=== PATIENT | male | born 1985 | race Caucasian/White ===

== ENCOUNTER 2016-06-23 10:35 | Emergency (ER) | payer OTHER ==
[2016-06-23] MEDS ORDERED: IPRATROPIUM 0.5MG/ALBUTEROL 2.5MG INH SOL UD 3ML (DUONEB)(J7620) As Ordered ONE (11:23)
[2016-06-23] MEDS ORDERED: KETOROLAC 30 MG/ML VIAL (J1885) As Ordered ONE (11:41)
[2016-06-23 11:55] LABS: BASO # 0.2 K/mm3 (0.0-0.2); BASO % 1.4 % (0.0-1.0); EOS # 0.2 K/mm3 (0.0-0.50); EOS % 1.3 % (0.0-3.0); LARGE UNSTAINED CELL # 0.2 K/mm3 (0.0-0.4); LARGE UNSTAINED CELL % 1.1 % (0.0-4.0); LYMPH # 3.8 K/mm3 (1.5-4.5); LYMPH % 22.8 % (24.0-44.0); MEAN CORPUSCULAR HEMOGLOBIN 30.6 pg (27.0-33.0); MEAN CORPUSCULAR HGB CONC 33.9 g/dl (32.0-36.5); MEAN CORPUSCULAR VOLUME 90.2 fl (80.0-96.0); MONO # 0.8 K/mm3 (0.0-0.8); NEUTROPHILS # 10.7 K/mm3 (1.8-7.7); NEUTROPHILS % 68.4 % (36.0-66.0); PLATELET COUNT, AUTOMATED 243 k/mm3 (150-450); RED CELL DISTRIBUTION WIDTH 12.8 % (11.5-14.5); WHITE BLOOD COUNT 15.7 K/mm3 (4.0-10.0)
[2016-06-23 12:22] LABS: ALBUMIN 4.1 GM/DL (3.2-5.2); ALBUMIN/GLOBULIN RATIO 1.21 (1.00-1.93); ALKALINE PHOSPHATASE 97 U/L (45-117); ALT/SGPT 39 U/L (12-78); ANION GAP 7 MEQ/L (8-16); AST/SGOT 16 U/L (15-37); BILIRUBIN,DIRECT 0.1 MG/DL (0.0-0.2); BILIRUBIN,TOTAL 0.6 MG/DL (0.2-1.0); BLOOD UREA NITROGEN 16 MG/DL (7-18); CALCIUM LEVEL 8.7 MG/DL (8.5-10.1); CARBON DIOXIDE LEVEL 28 MEQ/L (21-32); CHLORIDE LEVEL 106 MEQ/L (98-107); CREATININE FOR GFR 1.01 MG/DL (0.70-1.30); GLOMERULAR FILTRATION RATE > 60.0 (>60); GLUCOSE, FASTING 84 MG/DL (70-105); POTASSIUM SERUM 3.7 MEQ/L (3.5-5.1); SODIUM LEVEL 141 MEQ/L (136-145); TOTAL PROTEIN 7.5 GM/DL (6.4-8.2)
[2016-06-23] MEDS ORDERED: ISOVUE-370 76% 100ML VIAL (Q9967) As Ordered ONE (12:57)
--- NOTE | 2016-06-23 16:06 | EDDOCDS ---
Nurse's Notes [facility] Name: Jamie Boyce Age: 30 yrs Sex: Male : 1985 Arrival Date: 06/23/2016 Time: 10:35 Bed I1 / M1 Private MD: NO PRIMARY PHYSICIAN, . Diagnosis: Acute upper respiratory infections of multiple and unspecified sites;Acute bronchitis;Abdominal and pelvic pain-RLQ Presentation: 06/23 10:38 Presenting complaint: Patient states: sick for the past couple of weeks and was hs1 diagnosed with bronchitis. Patient states he has been getting a sharp pain in bottom right of stomach and he thought it was because he was getting sick. Patient states let it go and then pain flared up again this morning. Pt concerned for appendicitis. Adult Sepsis Screening: The patient does not have new or worsening altered mentation. Patient's respiratory rate is less than 22. Systolic blood pressure is greater than 100. Patient has a qSOFA score of 0- Negative Sepsis Screen. Suicide/Homicide risk assessment- the patient denies having any suicidal and/or homicidal ideations and does not present with any other emotional, behavioral or mental health complaints. Status: Patient is not a director of casework services or dependent. Transition of care: patient was not received from another setting of care. 10:38 Acuity: LUIZ Level 3 hs1 10:38 Method Of Arrival: Walkin/Carried/Asstd hs1 Triage Assessment: 10:44 General: Appears in no apparent distress, Behavior is appropriate for age, cooperative. hs1 Pain: Location: abdomen Pain currently is 5 out of 10 on a pain scale. HIV screening NA for this visit Offered previously. GI: Reports nausea. Derm: Skin is pink, warm & dry. normal. Historical: - Allergies: SULFA (SULFONAMIDES); Ceclor; Penicillins; - Home Meds: 1. doxycycline hyclate 100 mg Oral tab 1 tab every 12 hours (Last dose: 06/23/2016 07:00) 2. prednisone 20 mg Oral tab 2 tabs once daily (Last dose: 06/22/2016 13:00) - PMHx: none; - PSHx: reconstruction of left big toe; - Social history: Smoking status: Patient uses tobacco products, heavy tobacco smoker. No barriers to communication noted, The patient speaks fluent Maori, Speaks appropriately for age. - Family history: Not pertinent. - : The pt / caregiver states he / she is not on anticoagulants. Home medication list is obtained from the patient. - Exposure Risk Screening:: None identified. Screenin:56 Screening information is obtained from the patient. Fall risk: No risks identified. ms18 Assistance ADL's: requires no assistance with activities of daily living. Abuse/DV Screen: The patient / caregiver reports he/she is: not in a situation that causes fear, pain or injury. Nutritional screening: No deficits noted. Advance Directives: There is no living will. home support is adequate. Assessment: 11:56 General: Appears in no apparent distress, comfortable, Behavior is appropriate for age, ms18 cooperative. Pain: Location: abdomen Pain currently is 5 out of 10 on a pain scale. Neurological: Level of Consciousness is awake, alert, obeys commands, Oriented to person, place, time, Speech is normal. Respiratory: Airway is patent Respiratory effort is even, unlabored, Reports cough that is. GI: Abdomen is non- distended Bowel sounds present X 4 quads. Abd is soft X 4 quads. Derm: Skin is pink, warm & dry. 12:59 General: Pt going to CT at this time. Will continue to monitor pt. Pt in no acute ms18 distress. Pt can ambulate with no assistance. 13:54 General: PT in no acute distress. VSS. Awaiting CT results at this time. Will continue jjr to monitor pt. 14:43 General: Appears in no apparent distress, comfortable, Behavior is appropriate for age, jjr cooperative, pleasant. General: Awaiting CT results at this time. Pt informed of this. Will continue to monitor pt. Neurological: No deficits noted. Respiratory: No deficits noted. Derm: Skin is pink, warm & dry. 14:59 Reassessment: Patient appears in no apparent distress at this time. Patient states ttb feeling better. General: pt updated on waiting for CT results still. . 15:48 General: Appears in no apparent distress, comfortable, Behavior is appropriate for age, ms18 cooperative, Continuing to await CT results at this time. Dr. Tripathi aware of this, CT has called MIS and MIS states that this a nationwide issue at the moment. Dr. Tripathi is unable to see the scans at this time as well. Will continue to monitor pt. PT in no acute distress. . Neurological: No deficits noted. Respiratory: No deficits noted. Derm: Skin is pink, warm & dry. 16:03 Reassessment: Patient appears in no apparent distress at this time. Patient denies pain ttb at this time. Patient states feeling better. Patient states symptoms have improved. pt states he is comfortable going home at this time.. General: Appears in no apparent distress, comfortable. Pain: Denies pain. Neurological: Level of Consciousness is awake, alert. Cardiovascular: Chest pain is denied. Respiratory: Airway is patent Respiratory effort is even, unlabored, Denies labored breathing. GI: Denies nausea, vomiting. Vital Signs: 10:36 BP 146 / 93; Pulse 94; Resp 16; Temp 97.4(O); Pulse Ox 96% on R/A; Weight 104.33 kg elp (R); Height 6 ft. 0 in. (182.88 cm) (R); Pain 5/10; 13:48 BP 137 / 91 LA Sitting (auto/lg); Pulse 80; Resp 22; Temp 97.5(O); Pulse Ox 96% on R/A; bnb Pain 3/10; 14:45 Resp 18; jjr 15:57 BP 135 / 74 LA Sitting (auto/lg); Pulse 70; Resp 20; Temp 97.5; Pulse Ox 96% on R/A; bnb Pain 0/10; 10:36 Body Mass Index 31.19 (104.33 kg, 182.88 cm) elp Vitals: 10:36 Log In Time: June 23, 2016 at 10:34. [facility] ED Course: 10:36 Patient visited by Kaitlin Dean PCA. elp 10:36 NO PRIMARY PHYSICIAN, . is Private Physician. elp 10:36 Patient moved to Waiting elp 10:37 Patient visited by Kaitlin Dean PCA. elp 10:37 Patient moved to Pre RCE elp 10:40 Triage Initiated hs1 10:45 Patient moved to Triage 1 hs1 10:47 [facility]arn[facility] Kaminski [facility] cc10 10:47 Renuka Simmons MD is Attending Physician. cc10 11:10 Patient visited by Earnest Kaminski PA-C. cc10 11:10 Patient visited by Earnest Kaminski PA-C. cc10 11:21 Patient moved to I1 / M1 ct3 11:24 Urinalysis Sent. jjr 11:55 Patient visited by Jacey Stanley RN. ms18 11:56 The patient / caregiver is instructed regarding the plan of care and ED course. ms18 Accompanied by Family Member, Patient has correct armband on for positive identification. Bed in low position. Call light in reach. Property sent home with patient. :Personal belongings accompany Pt. 11:56 Inserted saline lock: 18 gauge in right antecubital area and blood collected. The ms18 patient tolerated the procedure well. 12:23 Patient name changed from Jamie\S\\S\Joles\S\ to Jamie\S\D\S\Joles. EDMS 12:26 [facility] Payment Agreement was scanned into [employer] and attached to record. lg 13:01 Patient visited by Roscoe Dominguez. jml1 13:44 Patient visited by Jacey Stanley RN. ms18 13:49 Patient visited by Padma Rothman PCA. bnb 14:43 Patient visited by Iram Fagan, VERNA. jjr 14:59 Patient visited by Gabrielle John RN. ttb 15:00 Patient visited by Gabrielle John RN. ttb 15:48 Patient visited by Jacey Stanley RN. ms18 15:54 [facility] is Referral Physician. cc10 15:57 Patient visited by Padma Rothman PCA. bnb 16:03 Discontinued IV lock intact, bleeding controlled, pressure dressing applied, No ttb redness/swelling at site. No procedures done that require assistance. 16:03 Urine collected. Clean catch specimen. ttb Administered Medications: 11:27 Drug: Albuterol-Ipratropium 3 ml [ipratropium-albuterol 0.5 mg-3 mg(2.5 mg base)/3 mL [facility] nebulization soln (3 mL)] Route: Inhalation; 11:35 Follow up: Response: Nebulizer completed km6 11:55 Drug: ketorolac 30 mg [ketorolac 30 mg/mL (1 mL) injection solution (1 mL)] Route: IVP; ms18 Site: left antecubital; 16:04 Follow up: Response: No Adverse Reaction ttb RT: 11:28 Initial Med Neb Given as ordered Patient was instructed and evaluated on procedure km6 Patient tolerated procedure well without adverse effect. Respiratory: Breath sounds are clear Breath sounds are diminished bilaterally. Order Results: Lab Order: Basic Metabolic Profile; SPEC'M 06/23/16 11:44 Test: GLUCOSE, FASTING; Value: 84; Range: 70-105; Units: MG/DL; Status: F Test: BLOOD UREA NITROGEN; Value: 16; Range: 7-18; Units: MG/DL; Status: F Test: CREATININE FOR GFR; Value: 1.01; Range: 0.70-1.30; Units: MG/DL; Status: F Test: GLOMERULAR FILTRATION RATE; Value: > 60.0; Range: >60; Status: F Test: SODIUM LEVEL; Value: 141; Range: 136-145; Units: MEQ/L; Status: F Test: POTASSIUM SERUM; Value: 3.7; Range: 3.5-5.1; Units: MEQ/L; Status: F Test: CHLORIDE LEVEL; Value: 106; Range: 98-107; Units: MEQ/L; Status: F Test: CARBON DIOXIDE LEVEL; Value: 28; Range: 21-32; Units: MEQ/L; Status: F Test: ANION GAP; Value: 7; Range: 8-16; Abnormal: Below low normal; Units: MEQ/L; Status: F Test: CALCIUM LEVEL; Value: 8.7; Range: 8.5-10.1; Units: MG/DL; Status: F Test Note: ; Units are mL/min/1.73 m2 Chronic Kidney Disease Staging per NKF: Stage I & II GFR >=60 Normal to Mildly Decreased Stage III GFR 30-59 Moderately Decreased Stage IV GFR 15-29 Severely Decreased Stage V GFR <15 Very Little GFR Left ESRD GFR <15 on AGRONOMY INTERNSHIP Lab Order: CBC with Diff; SPEC'M 06/23/16 11:44 Test: WHITE BLOOD COUNT; Value: 15.7; Range: 4.0-10.0; Abnormal: Above high normal; Units: K/mm3; Status: F Test: RED BLOOD COUNT; Value: 5.55; Range: 4.30-6.10; Units: M/mm3; Status: F Test: HEMOGLOBIN; Value: 17.0; Range: 14.0-18.0; Units: g/dl; Status: F Test: HEMATOCRIT; Value: 50.1; Range: 42.0-52.0; Units: %; Status: F Test: MEAN CORPUSCULAR VOLUME; Value: 90.2; Range: 80.0-96.0; Units: fl; Status: F Test: MEAN CORPUSCULAR HEMOGLOBIN; Value: 30.6; Range: 27.0-33.0; Units: pg; Status: F Test: MEAN CORPUSCULAR HGB CONC; Value: 33.9; Range: 32.0-36.5; Units: g/dl; Status: F Test: RED CELL DISTRIBUTION WIDTH; Value: 12.8; Range: 11.5-14.5; Units: %; Status: F Test: PLATELET COUNT, AUTOMATED; Value: 243; Range: 150-450; Units: k/mm3; Status: F Test: NEUTROPHILS %; Value: 68.4; Range: 36.0-66.0; Abnormal: Above high normal; Units: %; Status: F Test: LYMPH %; Value: 22.8; Range: 24.0-44.0; Abnormal: Below low normal; Units: %; Status: F Test: MONO %; Value: 5.0; Range: 0.0-5.0; Units: %; Status: F Test: EOS %; Value: 1.3; Range: 0.0-3.0; Units: %; Status: F Test: BASO %; Value: 1.4; Range: 0.0-1.0; Abnormal: Above high normal; Units: %; Status: F Test: LARGE UNSTAINED CELL %; Value: 1.1; Range: 0.0-4.0; Units: %; Status: F Test: NEUTROPHILS #; Value: 10.7; Range: 1.8-7.7; Abnormal: Above high normal; Units: K/mm3; Status: F Test: LYMPH #; Value: 3.8; Range: 1.5-4.5; Units: K/mm3; Status: F Test: MONO #; Value: 0.8; Range: 0.0-0.8; Units: K/mm3; Status: F Test: EOS #; Value: 0.2; Range: 0.0-0.50; Units: K/mm3; Status: F Test: BASO #; Value: 0.2; Range: 0.0-0.2; Units: K/mm3; Status: F Test: LARGE UNSTAINED CELL #; Value: 0.2; Range: 0.0-0.4; Units: K/mm3; Status: F Lab Order: Lipase; [facility] 06/23/16 11:44 Test: LIPASE; Value: 120; Range: 73-393; Units: U/L; Status: F Lab Order: Liver Profile; [facility] 06/23/16 11:44 Test: AST/SGOT; Value: 16; Range: 15-37; Units: U/L; Status: F Test: ALT/SGPT; Value: 39; Range: 12-78; Units: U/L; Status: F Test: ALKALINE PHOSPHATASE; Value: 97; Range: 45-117; Units: U/L; Status: F Test: BILIRUBIN,TOTAL; Value: 0.6; Range: 0.2-1.0; Units: MG/DL; Status: F Test: BILIRUBIN,DIRECT; Value: 0.1; Range: 0.0-0.2; Units: MG/DL; Status: F Test: TOTAL PROTEIN; Value: 7.5; Range: 6.4-8.2; Units: GM/DL; Status: F Test: ALBUMIN; Value: 4.1; Range: 3.2-5.2; Units: GM/DL; Status: F Test: ALBUMIN/GLOBULIN RATIO; Value: 1.21; Range: 1.00-1.93; Status: F Lab Order: Urinalysis; [facility] 06/23/16 11:21 Test: APPEARANCE, URINE; Value: CLEAR; Range: CLEAR; Status: F Test: COLOR, URINE; Value: YELLOW; Range: YELLOW; Status: F Test: PH,URINE; Value: 5.0; Range: 5.0-9.0; Units: UNITS; Status: F Test: SPECIFIC GRAVITY URINE AUTO; Value: 1.026; Range: 1.002-1.035; Status: F Test: PROTEIN, URINE AUTO; Value: NEGATIVE; Range: NEGATIVE; Units: mg/dL; Status: F Test: GLUCOSE, URINE (UA) AUTO; Value: NEGATIVE; Range: NEGATIVE; Units: mg/dL; Status: F Test: KETONE, URINE AUTO; Value: NEGATIVE; Range: NEGATIVE; Units: mg/dL; Status: F Test: UROBILINOGEN, URINE AUTO; Value: 0.2; Range: 0.0-2.0; Units: mg/dL; Status: F Test: BILIRUBIN, URINE AUTO; Value: NEGATIVE; Range: NEGATIVE; Status: F Test: NITRITE, URINE AUTO; Value: NEGATIVE; Range: NEGATIVE; Status: F Test: LEUKOCYTE ESTERASE, URINE AUTO; Value: NEGATIVE; Range: NEGATIVE; Status: F Test: BLOOD, URINE BLOOD; Value: NEGATIVE; Range: NEGATIVE; Status: F Test: WBC, URINE AUTO; Value: 0; Range: 0-3; Units: /HPF; Status: F Test: RBC, URINE AUTO; Value: 0; Range: 0-3; Units: /HPF; Status: F Test: BACTERIA, URINE AUTO; Value: NEGATIVE; Range: NEGATIVE; Status: F Test: SQUAMOUS EPITHELIAL CELL UR AU; Value: 0; Range: 0-6; Units: /HPF; Status: F Test: MUCUS, URINE; Value: SMALL; Range: NEGATIVE; Status: F Test: HYALINE CAST, URINE AUTO; Value: 0; Range: 0-1; Units: /LPF; Status: F Outcome: 15:54 Discharge ordered by Provider. cc10 16:03 Discharge Assessment: Patient awake, alert and oriented x 3. No cognitive and/or ttb functional deficits noted. Patient verbalized understanding of disposition instructions. Patient awake and alert. patient administered narcotics - no. The following High Risk Discharge criteria are identified: None. Discharged to home ambulatory. Condition: good Condition: stable Condition: improved. Discharge instructions given to patient, Instructed on discharge instructions, follow up and referral plans. medication usage, Demonstrated understanding of instructions, medications, Pt was receptive of discharge instructions/ teaching. Prescriptions given X 1, 2. CT Study completed. 16:05 Patient left the ED. ttb Signatures: Dispatcher [employer] EDMS Lelo Al, Cynthia Rashid lg km6 Iram Fagan RN RN jjr Sherrill, Hannah, RN RN hs1 Mylene Crowe, DURABLE MEDICAL EQUIPMENT REPAIRER DURABLE MEDICAL EQUIPMENT REPAIRER ct3 Roscoe Dominguez jml1 Gabrielle John RN RN ttb Kaitlin Dean, DURABLE MEDICAL EQUIPMENT REPAIRER DURABLE MEDICAL EQUIPMENT REPAIRER elp Eanrest Kaminski, PA-C PA-C cc10 Jacey Stanley,RN RN ms18 Padma Rothman, DURABLE MEDICAL EQUIPMENT REPAIRER DURABLE MEDICAL EQUIPMENT REPAIRER bnb MTDD
--- NOTE | 2016-06-23 16:06 | EDDOCDS ---
Physician Documentation [facility] Name: Jamie Boyce Age: 30 yrs Sex: Male : 1985 Arrival Date: 06/23/2016 Time: 10:35 Bed I1 / M1 Private MD: NO PRIMARY PHYSICIAN, . Disposition: 06/23/16 15:54 Discharged to Home/Self Care. Impression: Acute upper respiratory infections of multiple and unspecified sites, Acute bronchitis, Abdominal and pelvic pain - RLQ. - Condition is Stable. - Discharge Instructions: Acute Bronchitis, Upper Respiratory Infection, Adult, Muscle Strain. - Prescriptions for Ultram 50 mg Oral Tablet - take 1 tablet by ORAL route every 6 hours As needed MDD: 4 tabs; 16 tablet. Guaifenesin- DM 10-100 mg/5 mL Oral Liquid - take 5 milliliter by ORAL route every 4 hours As needed; 100 milliliter. - Medication Reconciliation, Local Pharmacy Hours, Work Release Form - 2 day form. - Follow up: Emergency Department; When: As needed. [facility]: [facility]; When: Call to arrange an appointment; Reason: Recheck today's complaints, Continuance of care, To establish care. - Problem is an ongoing problem. - Symptoms have improved. Historical: - Allergies: SULFA (SULFONAMIDES); Ceclor; Penicillins; - Home Meds: 1. doxycycline hyclate 100 mg Oral tab 1 tab every 12 hours (Last dose: 06/23/2016 07:00) 2. prednisone 20 mg Oral tab 2 tabs once daily (Last dose: 06/22/2016 13:00) - PMHx: none; - PSHx: reconstruction of left big toe; - Social history: Smoking status: Patient uses tobacco products, heavy tobacco smoker. No barriers to communication noted, The patient speaks fluent Sami, Speaks appropriately for age. - Family history: Not pertinent. - : The pt / caregiver states he / she is not on anticoagulants. Home medication list is obtained from the patient. - Exposure Risk Screening:: None identified. Vital Signs: 06/23 10:36 BP 146 / 93; Pulse 94; Resp 16; Temp 97.4(O); Pulse Ox 96% on R/A; Weight 104.33 kg / elp 230.01 lbs (R); Height 6 ft. 0 in. (182.88 cm) (R); Pain 5/10; 13:48 BP 137 / 91 LA Sitting (auto/lg); Pulse 80; Resp 22; Temp 97.5(O); Pulse Ox 96% on R/A; bnb Pain 3/10; 14:45 Resp 18; jjr 15:57 BP 135 / 74 LA Sitting (auto/lg); Pulse 70; Resp 20; Temp 97.5; Pulse Ox 96% on R/A; bnb Pain 0/10; 10:36 Body Mass Index 31.19 (104.33 kg, 182.88 cm) elp MDM: 11:17 ketorolac 30 mg IVP once ordered. cc10 11:17 IV Saline Lock ordered. cc10 11:17 Undress patient appropriately for examination ordered. cc10 11:17 Albuterol-Ipratropium 3 ml Inhalation once ordered. cc10 11:17 Call Respiratory ordered. cc10 11:18 Basic Metabolic Profile Ordered. EDMS 11:18 CBC with Diff Ordered. EDMS 11:18 Lipase Ordered. EDMS 11:18 Liver Profile Ordered. EDMS 11:18 Urinalysis Ordered. EDMS 11:18 NOTHING BY MOUTH+DIET ordered. EDMS 11:19 Chest, 2 View (pa\E\lat) Ordered. EDMS 11:23 Call Respiratory complete. bnb 12:03 Financial registration complete. lg 12:26 [facility] [place] Agreement was scanned into [employer] and attached to record. lg 12:29 Basic Metabolic Profile Reviewed. cc10 12:29 CBC with Diff Reviewed. cc10 12:29 Lipase Reviewed. cc10 12:29 Liver Profile Reviewed. cc10 12:29 Urinalysis Reviewed. cc10 12:32 CT ABD & PELVIS: IV Contrast Only Ordered. EDMS Administered Medications: 11:27 Drug: Albuterol-Ipratropium 3 ml [ipratropium-albuterol 0.5 mg-3 mg(2.5 mg base)/3 mL [facility] nebulization soln (3 mL)] Route: Inhalation; 11:35 Follow up: Response: Nebulizer completed km6 11:55 Drug: ketorolac 30 mg [ketorolac 30 mg/mL (1 mL) injection solution (1 mL)] Route: IVP; ms18 Site: left antecubital; 16:04 Follow up: Response: No Adverse Reaction ttb Signatures: Dispatcher [employer] EDLelo Ann, Reg Reg lg Linda Wyatt RN RN hs1 Gabrielle John RN RN ttb Earnest Kaminski, PAChristiana PAChristiana cc10 Jacey Stanley RN RN ms18 Padma Rothman, AUDITING SPECIALIST AUDITING SPECIALIST bnb Cynthia Hawkins km6 The chart was reviewed and I authenticate all verbal orders and agree with the evaluation and treatment provided.Attachments: 12:26 [facility] Payment Agreement lg MTDD
--- NOTE | 2016-06-25 08:31 | REP ---
PA and lateral chest: Comparisons 09/12/2010. The lung jones are clear. The cardiac size is normal The rosa, mediastinum, and bony thorax are unremarkable. Impression: Negative PA and lateral chest. There is no interval change. Signed by Ethan Tripathi MD 06/23/2016 11:35 A
--- NOTE | 2016-06-25 11:02 | REP ---
CT abdomen and pelvis with IV contrast, without bowel contrast: There are no comparison studies. The appendix has a normal appearance. The visualized lung jones are unremarkable. The pancreas, gallbladder, hepatic parenchyma and spleen are unremarkable. The adrenals, kidneys and abdominal aorta are unremarkable. There is no hydronephrosis. There is no bowel distension or obstruction. The mesentery is unremarkable. Pelvis: There is no ascites or adenopathy. The bladder is incompletely distended and cannot be evaluated. The pelvic bowel loops are unremarkable. Impression: Negative CT study of the abdomen and pelvis. There is no CT evidence of appendicitis. Signed by Ethan Tripathi MD 06/23/2016 01:46 P
--- NOTE | 2016-06-25 17:06 | EDDOCDS ---
Physician Documentation [facility] Name: Jamie Boyce Age: 30 yrs Sex: Male : 1985 Arrival Date: 06/23/2016 Time: 10:35 Bed I1 / M1 Private MD: NO PRIMARY PHYSICIAN, . Disposition: 06/23/16 15:54 Discharged to Home/Self Care. Impression: Acute upper respiratory infections of multiple and unspecified sites, Acute bronchitis, Abdominal and pelvic pain - RLQ. - Condition is Stable. - Discharge Instructions: Acute Bronchitis, Upper Respiratory Infection, Adult, Muscle Strain. - Prescriptions for Ultram 50 mg Oral Tablet - take 1 tablet by ORAL route every 6 hours As needed MDD: 4 tabs; 16 tablet. Guaifenesin- DM 10-100 mg/5 mL Oral Liquid - take 5 milliliter by ORAL route every 4 hours As needed; 100 milliliter. - Medication Reconciliation, Local Pharmacy Hours, Work Release Form - 2 day form. - Follow up: Emergency Department; When: As needed. [facility]: [facility]; When: Call to arrange an appointment; Reason: Recheck today's complaints, Continuance of care, To establish care. - Problem is an ongoing problem. - Symptoms have improved. Historical: - Allergies: SULFA (SULFONAMIDES); Ceclor; Penicillins; - Home Meds: 1. doxycycline hyclate 100 mg Oral tab 1 tab every 12 hours (Last dose: 06/23/2016 07:00) 2. prednisone 20 mg Oral tab 2 tabs once daily (Last dose: 06/22/2016 13:00) - PMHx: none; - PSHx: reconstruction of left big toe; - Social history: Smoking status: Patient uses tobacco products, heavy tobacco smoker. No barriers to communication noted, The patient speaks fluent Serbian, Speaks appropriately for age. - Family history: Not pertinent. - : The pt / caregiver states he / she is not on anticoagulants. Home medication list is obtained from the patient. - Exposure Risk Screening:: None identified. Vital Signs: 06/23 10:36 BP 146 / 93; Pulse 94; Resp 16; Temp 97.4(O); Pulse Ox 96% on R/A; Weight 104.33 kg / elp 230.01 lbs (R); Height 6 ft. 0 in. (182.88 cm) (R); Pain 5/10; 13:48 BP 137 / 91 LA Sitting (auto/lg); Pulse 80; Resp 22; Temp 97.5(O); Pulse Ox 96% on R/A; bnb Pain 3/10; 14:45 Resp 18; jjr 15:57 BP 135 / 74 LA Sitting (auto/lg); Pulse 70; Resp 20; Temp 97.5; Pulse Ox 96% on R/A; bnb Pain 0/10; 10:36 Body Mass Index 31.19 (104.33 kg, 182.88 cm) elp MDM: 11:17 ketorolac 30 mg IVP once ordered. cc10 11:17 IV Saline Lock ordered. cc10 11:17 Undress patient appropriately for examination ordered. cc10 11:17 Albuterol-Ipratropium 3 ml Inhalation once ordered. cc10 11:17 Call Respiratory ordered. cc10 11:18 Basic Metabolic Profile Ordered. EDMS 11:18 CBC with Diff Ordered. EDMS 11:18 Lipase Ordered. EDMS 11:18 Liver Profile Ordered. EDMS 11:18 Urinalysis Ordered. EDMS 11:18 NOTHING BY MOUTH+DIET ordered. EDMS 11:19 Chest, 2 View (pa\E\lat) Ordered. EDMS 11:23 Call Respiratory complete. bnb 12:03 Financial registration complete. lg 12:26 [facility] Payment Agreement was scanned into [employer] and attached to record. lg 12:29 Basic Metabolic Profile Reviewed. cc10 12:29 CBC with Diff Reviewed. cc10 12:29 Lipase Reviewed. cc10 12:29 Liver Profile Reviewed. cc10 12:29 Urinalysis Reviewed. cc10 12:32 CT ABD & PELVIS: IV Contrast Only Ordered. EDMS 17:12 T-Sheet-- Draft Copy was scanned into [employer] and attached to record. klr Administered Medications: 11:27 Drug: Albuterol-Ipratropium 3 ml [ipratropium-albuterol 0.5 mg-3 mg(2.5 mg base)/3 mL [facility] nebulization soln (3 mL)] Route: Inhalation; 11:35 Follow up: Response: Nebulizer completed [facility] 11:55 Drug: ketorolac 30 mg [ketorolac 30 mg/mL (1 mL) injection solution (1 mL)] Route: IVP; ms18 Site: left antecubital; 16:04 Follow up: Response: No Adverse Reaction ttb Signatures: Dispatcher [employer] Lelo Parrish, Reg Reg lg Linda Wyatt RN RN hs1 Gabrielle John RN RN ttb Earnest Kaminski, PAKyleC PAChristiana clements10 Jacey Stanley RN RN ms18 Jaycee Steve Brittney, STORE MANAGER STORE MANAGER bnb Cynthia Hawkins 6 The chart was reviewed and I authenticate all verbal orders and agree with the evaluation and treatment provided.Attachments: 12:26 [facility] Payment Agreement lg 17:12 T-Sheet-- Draft Copy klr Chart Complete MTDD
--- NOTE | 2016-06-25 17:06 | EDDOCDS ---
Physician Documentation [facility] Name: Jamie Boyce Age: 30 yrs Sex: Male : 1985 Arrival Date: 06/23/2016 Time: 10:35 Bed I1 / M1 Private MD: NO PRIMARY PHYSICIAN, . Disposition: 06/23/16 15:54 Discharged to Home/Self Care. Impression: Acute upper respiratory infections of multiple and unspecified sites, Acute bronchitis, Abdominal and pelvic pain - RLQ. - Condition is Stable. - Discharge Instructions: Acute Bronchitis, Upper Respiratory Infection, Adult, Muscle Strain. - Prescriptions for Ultram 50 mg Oral Tablet - take 1 tablet by ORAL route every 6 hours As needed MDD: 4 tabs; 16 tablet. Guaifenesin- DM 10-100 mg/5 mL Oral Liquid - take 5 milliliter by ORAL route every 4 hours As needed; 100 milliliter. - Medication Reconciliation, Local Pharmacy Hours, Work Release Form - 2 day form. - Follow up: Emergency Department; When: As needed. [facility] up: [facility]; When: Call to arrange an appointment; Reason: Recheck today's complaints, Continuance of care, To establish care. - Problem is an ongoing problem. - Symptoms have improved. Historical: - Allergies: SULFA (SULFONAMIDES); Ceclor; Penicillins; - Home Meds: 1. doxycycline hyclate 100 mg Oral tab 1 tab every 12 hours (Last dose: 06/23/2016 07:00) 2. prednisone 20 mg Oral tab 2 tabs once daily (Last dose: 06/22/2016 13:00) - PMHx: none; - PSHx: reconstruction of left big toe; - Social history: Smoking status: Patient uses tobacco products, heavy tobacco smoker. No barriers to communication noted, The patient speaks fluent Italian, Speaks appropriately for age. - Family history: Not pertinent. - : The pt / caregiver states he / she is not on anticoagulants. Home medication list is obtained from the patient. - Exposure Risk Screening:: None identified. Vital Signs: 06/23 10:36 BP 146 / 93; Pulse 94; Resp 16; Temp 97.4(O); Pulse Ox 96% on R/A; Weight 104.33 kg / elp 230.01 lbs (R); Height 6 ft. 0 in. (182.88 cm) (R); Pain 5/10; 13:48 BP 137 / 91 LA Sitting (auto/lg); Pulse 80; Resp 22; Temp 97.5(O); Pulse Ox 96% on R/A; bnb Pain 3/10; 14:45 Resp 18; jjr 15:57 BP 135 / 74 LA Sitting (auto/lg); Pulse 70; Resp 20; Temp 97.5; Pulse Ox 96% on R/A; bnb Pain 0/10; 10:36 Body Mass Index 31.19 (104.33 kg, 182.88 cm) elp MDM: 11:17 ketorolac 30 mg IVP once ordered. cc10 11:17 IV Saline Lock ordered. cc10 11:17 Undress patient appropriately for examination ordered. cc10 11:17 Albuterol-Ipratropium 3 ml Inhalation once ordered. cc10 11:17 Call Respiratory ordered. cc10 11:18 Basic Metabolic Profile Ordered. EDMS 11:18 CBC with Diff Ordered. EDMS 11:18 Lipase Ordered. EDMS 11:18 Liver Profile Ordered. EDMS 11:18 Urinalysis Ordered. EDMS 11:18 NOTHING BY MOUTH+DIET ordered. EDMS 11:19 Chest, 2 View (pa\E\lat) Ordered. EDMS 11:23 Call Respiratory complete. bnb 12:03 Financial registration complete. lg 12:26 [facility] Payment Agreement was scanned into Compare[employer] and attached to record. lg 12:29 Basic Metabolic Profile Reviewed. cc10 12:29 CBC with Diff Reviewed. cc10 12:29 Lipase Reviewed. cc10 12:29 Liver Profile Reviewed. cc10 12:29 Urinalysis Reviewed. cc10 12:32 CT ABD & PELVIS: IV Contrast Only Ordered. EDMS 17:12 T-Sheet-- Draft Copy was scanned into [employer] and attached to record. klr Administered Medications: 11:27 Drug: Albuterol-Ipratropium 3 ml [ipratropium-albuterol 0.5 mg-3 mg(2.5 mg base)/3 mL [facility] nebulization soln (3 mL)] Route: Inhalation; 11:35 Follow up: Response: Nebulizer completed [facility] 11:55 Drug: ketorolac 30 mg [ketorolac 30 mg/mL (1 mL) injection solution (1 mL)] Route: IVP; ms18 Site: left antecubital; 16:04 Follow up: Response: No Adverse Reaction ttb Signatures: Dispatcher [employer] Lelo Parrish, Reg Reg lg Linda Wyatt RN RN hs1 Gabrielle John RN RN ttb Earnest Kaminski, PAKyleC PAChristiana clements10 Jacey Stanley RN RN ms18 Jaycee Steve Brittney, SUPERVISOR GRIPS SUPERVISOR GRIPS bnb Cynthia Hawkins 6 The chart was reviewed and I authenticate all verbal orders and agree with the evaluation and treatment provided.Attachments: 12:26 [facility] Payment Agreement lg 17:12 T-Sheet-- Draft Copy klr Chart Complete MTDD
--- NOTE | 2016-06-25 17:06 | EDDOCDS ---
Nurse's Notes [facility] Name: Jamie Boyce Age: 30 yrs Sex: Male : 1985 Arrival Date: 06/23/2016 Time: 10:35 Bed I1 / M1 Private MD: NO PRIMARY PHYSICIAN, . Diagnosis: Acute upper respiratory infections of multiple and unspecified sites;Acute bronchitis;Abdominal and pelvic pain-RLQ Presentation: 06/23 10:38 Presenting complaint: Patient states: sick for the past couple of weeks and was hs1 diagnosed with bronchitis. Patient states he has been getting a sharp pain in bottom right of stomach and he thought it was because he was getting sick. Patient states let it go and then pain flared up again this morning. Pt concerned for appendicitis. Adult Sepsis Screening: The patient does not have new or worsening altered mentation. Patient's respiratory rate is less than 22. Systolic blood pressure is greater than 100. Patient has a qSOFA score of 0- Negative Sepsis Screen. Suicide/Homicide risk assessment- the patient denies having any suicidal and/or homicidal ideations and does not present with any other emotional, behavioral or mental health complaints. Status: Patient is not a financial services director or dependent. Transition of care: patient was not received from another setting of care. 10:38 Acuity: LUIZ Level 3 hs1 10:38 Method Of Arrival: Walkin/Carried/Asstd hs1 Triage Assessment: 10:44 General: Appears in no apparent distress, Behavior is appropriate for age, cooperative. hs1 Pain: Location: abdomen Pain currently is 5 out of 10 on a pain scale. HIV screening NA for this visit Offered previously. GI: Reports nausea. Derm: Skin is pink, warm & dry. normal. Historical: - Allergies: SULFA (SULFONAMIDES); Ceclor; Penicillins; - Home Meds: 1. doxycycline hyclate 100 mg Oral tab 1 tab every 12 hours (Last dose: 06/23/2016 07:00) 2. prednisone 20 mg Oral tab 2 tabs once daily (Last dose: 06/22/2016 13:00) - PMHx: none; - PSHx: reconstruction of left big toe; - Social history: Smoking status: Patient uses tobacco products, heavy tobacco smoker. No barriers to communication noted, The patient speaks fluent Arabic, Speaks appropriately for age. - Family history: Not pertinent. - : The pt / caregiver states he / she is not on anticoagulants. Home medication list is obtained from the patient. - Exposure Risk Screening:: None identified. Screenin:56 Screening information is obtained from the patient. Fall risk: No risks identified. ms18 Assistance ADL's: requires no assistance with activities of daily living. Abuse/DV Screen: The patient / caregiver reports he/she is: not in a situation that causes fear, pain or injury. Nutritional screening: No deficits noted. Advance Directives: There is no living will. home support is adequate. Assessment: 11:56 General: Appears in no apparent distress, comfortable, Behavior is appropriate for age, ms18 cooperative. Pain: Location: abdomen Pain currently is 5 out of 10 on a pain scale. Neurological: Level of Consciousness is awake, alert, obeys commands, Oriented to person, place, time, Speech is normal. Respiratory: Airway is patent Respiratory effort is even, unlabored, Reports cough that is. GI: Abdomen is non- distended Bowel sounds present X 4 quads. Abd is soft X 4 quads. Derm: Skin is pink, warm & dry. 12:59 General: Pt going to CT at this time. Will continue to monitor pt. Pt in no acute ms18 distress. Pt can ambulate with no assistance. 13:54 General: PT in no acute distress. VSS. Awaiting CT results at this time. Will continue jjr to monitor pt. 14:43 General: Appears in no apparent distress, comfortable, Behavior is appropriate for age, jjr cooperative, pleasant. General: Awaiting CT results at this time. Pt informed of this. Will continue to monitor pt. Neurological: No deficits noted. Respiratory: No deficits noted. Derm: Skin is pink, warm & dry. 14:59 Reassessment: Patient appears in no apparent distress at this time. Patient states ttb feeling better. General: pt updated on waiting for CT results still. . 15:48 General: Appears in no apparent distress, comfortable, Behavior is appropriate for age, ms18 cooperative, Continuing to await CT results at this time. Dr. Tripathi aware of this, CT has called MIS and MIS states that this a nationwide issue at the moment. Dr. Tripathi is unable to see the scans at this time as well. Will continue to monitor pt. PT in no acute distress. . Neurological: No deficits noted. Respiratory: No deficits noted. Derm: Skin is pink, warm & dry. 16:03 Reassessment: Patient appears in no apparent distress at this time. Patient denies pain ttb at this time. Patient states feeling better. Patient states symptoms have improved. pt states he is comfortable going home at this time.. General: Appears in no apparent distress, comfortable. Pain: Denies pain. Neurological: Level of Consciousness is awake, alert. Cardiovascular: Chest pain is denied. Respiratory: Airway is patent Respiratory effort is even, unlabored, Denies labored breathing. GI: Denies nausea, vomiting. Vital Signs: 10:36 BP 146 / 93; Pulse 94; Resp 16; Temp 97.4(O); Pulse Ox 96% on R/A; Weight 104.33 kg elp (R); Height 6 ft. 0 in. (182.88 cm) (R); Pain 5/10; 13:48 BP 137 / 91 LA Sitting (auto/lg); Pulse 80; Resp 22; Temp 97.5(O); Pulse Ox 96% on R/A; bnb Pain 3/10; 14:45 Resp 18; jjr 15:57 BP 135 / 74 LA Sitting (auto/lg); Pulse 70; Resp 20; Temp 97.5; Pulse Ox 96% on R/A; bnb Pain 0/10; 10:36 Body Mass Index 31.19 (104.33 kg, 182.88 cm) elp Vitals: 10:36 Log In Time: June 23, 2016 at 10:34. [facility] ED Course: 10:36 Patient visited by Kaitlin Dean PCA. elp 10:36 NO PRIMARY PHYSICIAN, . is Private Physician. elp 10:36 Patient moved to Waiting elp 10:37 Patient visited by Kaitlin Dean PCA. elp 10:37 Patient moved to Pre RCE elp 10:40 Triage Initiated hs1 10:45 Patient moved to Triage 1 hs1 10:47 Earnest Kaminski PA-C is [facility]. cc10 10:47 Renuka Simmons MD is Attending Physician. cc10 11:10 Patient visited by Earnest Kaminski PA-C. cc10 11:10 Patient visited by Earnest Kaminski PA-C. cc10 11:21 Patient moved to I1 / M1 ct3 11:24 Urinalysis Sent. jjr 11:55 Patient visited by Jacey Stanley,VERNA. ms18 11:56 The patient / caregiver is instructed regarding the plan of care and ED course. ms18 Accompanied by Family Member, Patient has correct armband on for positive identification. Bed in low position. Call light in reach. Property sent home with patient. :Personal belongings accompany Pt. 11:56 Inserted saline lock: 18 gauge in right antecubital area and blood collected. The ms18 patient tolerated the procedure well. 12:23 Patient name changed from Jamie\S\\S\Joles\S\ to Jamie\S\D\S\Joles. EDMS 12:26 [facility] Payment Agreement was scanned into Just[employer] and attached to record. lg 13:01 Patient visited by Roscoe Dominguez. jml1 13:44 Patient visited by Jacey Stanley RN. ms18 13:49 Patient visited by Padma Rothman PCA. bnb 14:43 Patient visited by Iram Fagan, VERNA. jjr 14:59 Patient visited by Gabrielle John, VERNA. ttb 15:00 Patient visited by Gabrielle John, VERNA. ttb 15:48 Patient visited by Jacey Stanley RN. ms18 15:54 [facility] is Referral Physician. cc10 15:57 Patient visited by Padma Rothman PCA. bnb 16:03 Discontinued IV lock intact, bleeding controlled, pressure dressing applied, No ttb redness/swelling at site. No procedures done that require assistance. 16:03 Urine collected. Clean catch specimen. ttb 17:12 T-Sheet-- Draft Copy was scanned into Just[employer] and attached to record. klr 06/25 08:50 Chest, 2 View (pa\E\lat) Returned. EDMS 11:18 CT ABD & PELVIS: IV Contrast Only Returned. EDMS Administered Medications: 06/23 11:27 Drug: Albuterol-Ipratropium 3 ml [ipratropium-albuterol 0.5 mg-3 mg(2.5 mg base)/3 mL [facility] nebulization soln (3 mL)] Route: Inhalation; 11:35 Follow up: Response: Nebulizer completed km6 11:55 Drug: ketorolac 30 mg [ketorolac 30 mg/mL (1 mL) injection solution (1 mL)] Route: IVP; ms18 Site: left antecubital; 16:04 Follow up: Response: No Adverse Reaction ttb RT: 11:28 Initial Med Neb Given as ordered Patient was instructed and evaluated on procedure km6 Patient tolerated procedure well without adverse effect. Respiratory: Breath sounds are clear Breath sounds are diminished bilaterally. Order Results: Lab Order: Basic Metabolic Profile; SPEC'M 06/23/16 11:44 Test: GLUCOSE, FASTING; Value: 84; Range: 70-105; Units: MG/DL; Status: F Test: BLOOD UREA NITROGEN; Value: 16; Range: 7-18; Units: MG/DL; Status: F Test: CREATININE FOR GFR; Value: 1.01; Range: 0.70-1.30; Units: MG/DL; Status: F Test: GLOMERULAR FILTRATION RATE; Value: > 60.0; Range: >60; Status: F Test: SODIUM LEVEL; Value: 141; Range: 136-145; Units: MEQ/L; Status: F Test: POTASSIUM SERUM; Value: 3.7; Range: 3.5-5.1; Units: MEQ/L; Status: F Test: CHLORIDE LEVEL; Value: 106; Range: 98-107; Units: MEQ/L; Status: F Test: CARBON DIOXIDE LEVEL; Value: 28; Range: 21-32; Units: MEQ/L; Status: F Test: ANION GAP; Value: 7; Range: 8-16; Abnormal: Below low normal; Units: MEQ/L; Status: F Test: CALCIUM LEVEL; Value: 8.7; Range: 8.5-10.1; Units: MG/DL; Status: F Test Note: ; Units are mL/min/1.73 m2 Chronic Kidney Disease Staging per NKF: Stage I & II GFR >=60 Normal to Mildly Decreased Stage III GFR 30-59 Moderately Decreased Stage IV GFR 15-29 Severely Decreased Stage V GFR <15 Very Little GFR Left ESRD GFR <15 on FARO DEALER Lab Order: CBC with Diff; SPEC'M 06/23/16 11:44 Test: WHITE BLOOD COUNT; Value: 15.7; Range: 4.0-10.0; Abnormal: Above high normal; Units: K/mm3; Status: F Test: RED BLOOD COUNT; Value: 5.55; Range: 4.30-6.10; Units: M/mm3; Status: F Test: HEMOGLOBIN; Value: 17.0; Range: 14.0-18.0; Units: g/dl; Status: F Test: HEMATOCRIT; Value: 50.1; Range: 42.0-52.0; Units: %; Status: F Test: MEAN CORPUSCULAR VOLUME; Value: 90.2; Range: 80.0-96.0; Units: fl; Status: F Test: MEAN CORPUSCULAR HEMOGLOBIN; Value: 30.6; Range: 27.0-33.0; Units: pg; Status: F Test: MEAN CORPUSCULAR HGB CONC; Value: 33.9; Range: 32.0-36.5; Units: g/dl; Status: F Test: RED CELL DISTRIBUTION WIDTH; Value: 12.8; Range: 11.5-14.5; Units: %; Status: F Test: PLATELET COUNT, AUTOMATED; Value: 243; Range: 150-450; Units: k/mm3; Status: F Test: NEUTROPHILS %; Value: 68.4; Range: 36.0-66.0; Abnormal: Above high normal; Units: %; Status: F Test: LYMPH %; Value: 22.8; Range: 24.0-44.0; Abnormal: Below low normal; Units: %; Status: F Test: MONO %; Value: 5.0; Range: 0.0-5.0; Units: %; Status: F Test: EOS %; Value: 1.3; Range: 0.0-3.0; Units: %; Status: F Test: BASO %; Value: 1.4; Range: 0.0-1.0; Abnormal: Above high normal; Units: %; Status: F Test: LARGE UNSTAINED CELL %; Value: 1.1; Range: 0.0-4.0; Units: %; Status: F Test: NEUTROPHILS #; Value: 10.7; Range: 1.8-7.7; Abnormal: Above high normal; Units: K/mm3; Status: F Test: LYMPH #; Value: 3.8; Range: 1.5-4.5; Units: K/mm3; Status: F Test: MONO #; Value: 0.8; Range: 0.0-0.8; Units: K/mm3; Status: F Test: EOS #; Value: 0.2; Range: 0.0-0.50; Units: K/mm3; Status: F Test: BASO #; Value: 0.2; Range: 0.0-0.2; Units: K/mm3; Status: F Test: LARGE UNSTAINED CELL #; Value: 0.2; Range: 0.0-0.4; Units: K/mm3; Status: F Lab Order: Lipase; [facility]' 06/23/16 11:44 Test: LIPASE; Value: 120; Range: 73-393; Units: U/L; Status: F Lab Order: Liver Profile; [facility]' 06/23/16 11:44 Test: AST/SGOT; Value: 16; Range: 15-37; Units: U/L; Status: F Test: ALT/SGPT; Value: 39; Range: 12-78; Units: U/L; Status: F Test: ALKALINE PHOSPHATASE; Value: 97; Range: 45-117; Units: U/L; Status: F Test: BILIRUBIN,TOTAL; Value: 0.6; Range: 0.2-1.0; Units: MG/DL; Status: F Test: BILIRUBIN,DIRECT; Value: 0.1; Range: 0.0-0.2; Units: MG/DL; Status: F Test: TOTAL PROTEIN; Value: 7.5; Range: 6.4-8.2; Units: GM/DL; Status: F Test: ALBUMIN; Value: 4.1; Range: 3.2-5.2; Units: GM/DL; Status: F Test: ALBUMIN/GLOBULIN RATIO; Value: 1.21; Range: 1.00-1.93; Status: F Lab Order: Urinalysis; [facility]' 06/23/16 11:21 Test: APPEARANCE, URINE; Value: CLEAR; Range: CLEAR; Status: F Test: COLOR, URINE; Value: YELLOW; Range: YELLOW; Status: F Test: PH,URINE; Value: 5.0; Range: 5.0-9.0; Units: UNITS; Status: F Test: SPECIFIC GRAVITY URINE AUTO; Value: 1.026; Range: 1.002-1.035; Status: F Test: PROTEIN, URINE AUTO; Value: NEGATIVE; Range: NEGATIVE; Units: mg/dL; Status: F Test: GLUCOSE, URINE (UA) AUTO; Value: NEGATIVE; Range: NEGATIVE; Units: mg/dL; Status: F Test: KETONE, URINE AUTO; Value: NEGATIVE; Range: NEGATIVE; Units: mg/dL; Status: F Test: UROBILINOGEN, URINE AUTO; Value: 0.2; Range: 0.0-2.0; Units: mg/dL; Status: F Test: BILIRUBIN, URINE AUTO; Value: NEGATIVE; Range: NEGATIVE; Status: F Test: NITRITE, URINE AUTO; Value: NEGATIVE; Range: NEGATIVE; Status: F Test: LEUKOCYTE ESTERASE, URINE AUTO; Value: NEGATIVE; Range: NEGATIVE; Status: F Test: BLOOD, URINE BLOOD; Value: NEGATIVE; Range: NEGATIVE; Status: F Test: WBC, URINE AUTO; Value: 0; Range: 0-3; Units: /HPF; Status: F Test: RBC, URINE AUTO; Value: 0; Range: 0-3; Units: /HPF; Status: F Test: BACTERIA, URINE AUTO; Value: NEGATIVE; Range: NEGATIVE; Status: F Test: SQUAMOUS EPITHELIAL CELL UR AU; Value: 0; Range: 0-6; Units: /HPF; Status: F Test: MUCUS, URINE; Value: SMALL; Range: NEGATIVE; Status: F Test: HYALINE CAST, URINE AUTO; Value: 0; Range: 0-1; Units: /LPF; Status: F Radiology Order: Chest, 2 View (pa\E\lat) Test: Chest, 2 View (pa\E\lat) REASON FOR EXAMINATION: Cough; PA and lateral chest:; ; Comparisons 09/12/2010.; ; The lung jones are clear. The cardiac size is normal; ; The rosa, mediastinum, and bony thorax are unremarkable.; ; Impression:; ; Negative PA and lateral chest. There is no interval change.; ; ; Signed by; Ethan Tripathi MD 06/23/2016 11:35 A; Radiology Order: CT ABD & PELVIS: IV Contrast Only Test: CT ABD & PELVIS: IV Contrast Only REASON FOR EXAMINATION: Appendicitis; CT abdomen and pelvis with IV contrast, without bowel contrast:; ; There are no comparison studies.; ; The appendix has a normal appearance.; ; The visualized lung jones are unremarkable.; ; The pancreas, gallbladder, hepatic parenchyma and spleen are unremarkable.; ; The adrenals, kidneys and abdominal aorta are unremarkable. There is no; hydronephrosis.; ; There is no bowel distension or obstruction. The mesentery is unremarkable.; ; Pelvis:; ; There is no ascites or adenopathy. The bladder is incompletely distended and; cannot be evaluated. The pelvic bowel loops are unremarkable.; ; Impression:; ; Negative CT study of the abdomen and pelvis. There is no CT evidence of; appendicitis.; ; ; Signed by; Ethan Tripathi MD 06/23/2016 01:46 P; Outcome: 15:54 Discharge ordered by Provider. cc10 16:03 Discharge Assessment: Patient awake, alert and oriented x 3. No cognitive and/or ttb functional deficits noted. Patient verbalized understanding of disposition instructions. Patient awake and alert. patient administered narcotics - no. The following High Risk Discharge criteria are identified: None. Discharged to home ambulatory. Condition: good Condition: stable Condition: improved. Discharge instructions given to patient, Instructed on discharge instructions, follow up and referral plans. medication usage, Demonstrated understanding of instructions, medications, Pt was receptive of discharge instructions/ teaching. Prescriptions given X 1, 2. CT Study completed. 16:05 Patient left the ED. ttb Signatures: Dispatcher [employer] EDMS Lelo Al, Saúl Reg lg ShruthiCynthia whipple km6 Iram Fagan, RN Linda Charlton RN RN hs1 Mylene Crowe, PLATE MAKER PLATE MAKER ct3 Roscoe Dominguez jml1 Gabrielle John RN RN ttb Kaitlin Dean, PLATE MAKER PLATE MAKER elp Earnest Kaminski, PA-C PA-C cc10 Jacey Stanley,VERNA RN ms18 Jaycee Steve Brittney, PLATE MAKER PLATE MAKER bnb Chart Complete MTDD
== END 2016-06-23 16:05 | disposition home or self-care (01) ==
LOC: M ED 10:35
DX: J06.9 Acute upper respiratory infection, unspecified (principal); J20.9 Acute bronchitis, unspecified; R10.31 Right lower quadrant pain; F17.200 Nicotine dependence, unspecified, uncomplicated; Z88.2 Allergy status to sulfonamides; Z88.0 Allergy status to penicillin; Z88.1 Allergy status to other antibiotic agents
CPT/HCPCS: 36415; 71020; 74177; 80048; 80076; 81001; 83690; 85025; 94640; 96374; 99284; J1885; Q9967

== ENCOUNTER → 2016-10-03 | Outpatient (CLI) | payer OTHER ==
[~2016-10-03] VITALS: Ht 182.9 cm; Wt 106.6 kg
[~2016-10-03] MED LIST: LIDOCAINE 2% INJ 100 MG/5 ML SDV (FOR ANES.) As Ordered ONE; LORT5TAB PO; NS 1,000 ML IV ONE; OMEP40CA2 PO; PROPOFOL 200 MG/20 ML VIAL As Ordered ONE
--- NOTE | 2016-10-03 13:54 | ROOR ---
Patient Name: Jamie Boyce Procedure Date: 10/03/2016 1:40 PM Date of : 1985 Age: 30 Room: [facility] Gender: Male Note Status: Finalized Procedure: Upper GI endoscopy + Biopsies Indications: Heartburn, Follow-up of esophageal reflux, Failure to respond to medical treatment Providers: Mauricio Correia MD Referring MD: 1. No Referring Physician 1. No Referring Physician, Admin. Requesting Provider: Medicines: Monitored Anesthesia Care Complications: No immediate complications. Procedure: Pre-Anesthesia Assessment: - The heart rate, respiratory rate, oxygen saturations, blood pressure, adequacy of pulmonary ventilation, and response to care were monitored throughout the procedure. The Endoscope was introduced through the mouth, and advanced to the second part of duodenum. The upper GI endoscopy was accomplished without difficulty. The patient tolerated the procedure well. Findings: The Z-line was irregular and was found 40 cm from the incisors. Multiple biopsies were obtained with cold forceps for evaluation to rule out Mo's Esophagus randomly at the gastroesophageal junction. No other significant abnormalities were identified in a careful examination of the stomach. The exam of the duodenum was otherwise normal. Impression: - Z-line irregular, 40 cm from the incisors. - Multiple biopsies were obtained at the gastroesophageal junction. - The examination was otherwise normal. Recommendation: - Patient has a contact number available for emergencies. The signs and symptoms of potential delayed complications were discussed with the patient. Return to normal activities tomorrow. Written discharge instructions were provided to the patient. - Discharge patient to home. - Continue present medications. - Await pathology results. - Telephone GI clinic for pathology results in 1 week. - Check Portal Online for Path Results.([email or web address]) - The findings and recommendations were discussed with the patient's family. Mauricio Correia MD Mauricio Correia MD 10/03/2016 1:53:48 PM This report has been signed electronically. Number of Addenda: 0 Note Initiated On: 10/03/2016 1:40 PM Estimated Blood Loss: Estimated blood loss: none.
[2016-10-03 14:21] VITALS: BP 129/75
== END | disposition home or self-care (01) ==
LOC: M OPP 12:35
PROVIDERS: ATTEND Internal Medicine Gastroenterology
DX: K21.9 Gastro-esophageal reflux disease without esophagitis (principal); K22.8 Other specified diseases of esophagus; R06.83 Snoring; F17.210 Nicotine dependence, cigarettes, uncomplicated; Z79.899 Other long term (current) drug therapy; Z88.0 Allergy status to penicillin; Z88.1 Allergy status to other antibiotic agents; Z88.2 Allergy status to sulfonamides; Z88.8 Allergy status to other drugs, medicaments and biological substances

== ENCOUNTER → 2019-04-28 | Outpatient (REF) | payer BC ==
[~2019-04-28] MED LIST changes: -LIDOCAINE 2% INJ 100 MG/5 ML SDV (FOR ANES.) As Ordered ONE; -NS 1,000 ML IV ONE; -OMEP40CA2 PO; +OMEP40CA97 PO; -PROPOFOL 200 MG/20 ML VIAL As Ordered ONE
[2019-04-28 16:55] LABS: AMORPHOUS SEDIMENT LARGE (NEGATIVE); APPEARANCE, URINE TURBID (CLEAR); BACTERIA, URINE AUTO NEGATIVE (NEGATIVE); BILIRUBIN, URINE AUTO NEGATIVE (NEGATIVE); BLOOD, URINE BLOOD NEGATIVE (NEGATIVE); COLOR, URINE YELLOW (YELLOW); GLUCOSE, URINE (UA) AUTO NEGATIVE (NEGATIVE); KETONE, URINE AUTO NEGATIVE (NEGATIVE); LEUKOCYTE ESTERASE, URINE AUTO NEGATIVE (NEGATIVE); NITRITE, URINE AUTO NEGATIVE (NEGATIVE); PROTEIN, URINE AUTO NEGATIVE (NEGATIVE); RBC, URINE AUTO 0 /HPF (0-3); SPECIFIC GRAVITY URINE AUTO 1.025 (1.002-1.035); SQUAMOUS EPITHELIAL CELL UR AU 0 /HPF (0-6); UROBILINOGEN, URINE AUTO 0.2 mg/dL (0.0-2.0); WBC, URINE AUTO 0 /HPF (0-3)
[2019-04-28 17:08] LABS: BASO # 0.1 10^3/uL (0.0-0.2); BASO % 0.7 % (0.0-1.0); EOS # 0.1 10^3/uL (0.0-0.5); EOS % 1.4 % (0.0-3.0); HEMATOCRIT 51.9 % (42.0-52.0); HEMOGLOBIN 16.9 g/dl (13.5-17.5); LYMPH # 2.5 10^3/uL (1.5-5.0); LYMPH % 27.9 % (24.0-44.0); MEAN CORPUSCULAR HEMOGLOBIN 29.5 pg (27.0-33.0); MEAN CORPUSCULAR HGB CONC 32.6 g/dl (32.0-36.5); MEAN CORPUSCULAR VOLUME 90.7 fl (80.0-96.0); MONO # 0.6 10^3/uL (0.0-0.8); MONO % 6.3 % (0.0-5.0); NEUTROPHILS # 5.8 10^3/uL (1.5-8.5); NEUTROPHILS % 63.4 % (36.0-66.0); PLATELET COUNT, AUTOMATED 281 10^3/uL (150-450); RED BLOOD COUNT 5.72 10^6/uL (4.30-6.10); WHITE BLOOD COUNT 9.1 10^3/uL (4.0-10.0)
[2019-04-28 17:36] LABS: ALBUMIN 4.7 GM/DL (3.2-5.2); ALT/SGPT 84 U/L (12-78); BLOOD UREA NITROGEN 16 MG/DL (7-18); CALCIUM LEVEL 9.3 MG/DL (8.5-10.1); CARBON DIOXIDE LEVEL 30 MEQ/L (21-32); CHLORIDE LEVEL 103 MEQ/L (98-107); CHOLESTEROL LEVEL 162 MG/DL (<200); CHOLESTEROL RISK RATIO 3.521 (<5); FREE T4 1.07 NG/DL (0.76-1.46); GLOMERULAR FILTRATION RATE > 60.0 (>60); GLUCOSE, FASTING 83 MG/DL (70-100); HDL CHOLESTEROL 46 MG/DL (>40); LDL CHOLESTEROL 76 MG/DL (<100); NON-HDL-C 116 MG/DL; POTASSIUM SERUM 4.3 MEQ/L (3.5-5.1); SODIUM LEVEL 139 MEQ/L (136-145); TOTAL PROTEIN 8.6 GM/DL (6.4-8.2); TRIGLYCERIDES LEVEL 199 MG/DL (<150)
[2019-04-28 18:03] LABS: TOTAL 25(OH) VITAMIN D 29.6 NG/ML (30.0-100.0)
[2019-04-28 18:17] LABS: HEMOGLOBIN A1c 5.2 %
== END ==
LOC: M LAB REF 16:42
PROVIDERS: ATTEND Nurse Practitioner Family
DX: Z13.9 Encounter for screening, unspecified (principal); J02.9 Acute pharyngitis, unspecified

== ENCOUNTER → 2019-07-12 | Outpatient (CLI) | payer BC ==
--- NOTE | 2019-07-12 13:19 | REP ---
Clinical: Jaw pain. Technique: AP, mcdonald, Bridget, bilateral oblique, and bilateral true lateral views of the mandible. Findings: Mandible is normal in appearance. The bilateral temporomandibular joints are normal on closed mouth views. Surrounding soft tissues are unremarkable. Impression: Normal mandible radiographs. Electronically Signed by Karlo Robledo MD 07/12/2019 01:11 P
== END ==
LOC: M WUC 12:41
PROVIDERS: ATTEND Physician Assistant
DX: R68.84 Jaw pain (principal)

== ENCOUNTER → 2020-04-29 | Outpatient (REF) | payer BC ==
[2020-04-29 15:22] LABS: BASO # 0.1 10^3/uL (0.0-0.2); BASO % 0.6 % (0.0-1.0); EOS # 0.1 10^3/uL (0.0-0.5); EOS % 1.6 % (0.0-3.0); HEMATOCRIT 50.2 % (42.0-52.0); HEMOGLOBIN 16.3 g/dl (13.5-17.5); LYMPH # 1.9 10^3/uL (1.5-5.0); LYMPH % 21.6 % (24.0-44.0); MEAN CORPUSCULAR HEMOGLOBIN 29.5 pg (27.0-33.0); MEAN CORPUSCULAR HGB CONC 32.5 g/dl (32.0-36.5); MEAN CORPUSCULAR VOLUME 90.8 fl (80.0-96.0); MONO # 0.4 10^3/uL (0.0-0.8); NEUTROPHILS # 6.1 10^3/uL (1.5-8.5); NEUTROPHILS % 70.9 % (36.0-66.0); PLATELET COUNT, AUTOMATED 264 10^3/uL (150-450); RED BLOOD COUNT 5.53 10^6/uL (4.30-6.10); WHITE BLOOD COUNT 8.6 10^3/uL (4.0-10.0)
[2020-04-29 15:34] LABS: ALBUMIN 4.1 GM/DL (3.2-5.2); ALT/SGPT 124 U/L (12-78); BILIRUBIN,TOTAL 0.8 MG/DL (0.2-1.0); BLOOD UREA NITROGEN 14 MG/DL (7-18); CARBON DIOXIDE LEVEL 29 MEQ/L (21-32); CHLORIDE LEVEL 105 MEQ/L (98-107); CREATININE FOR GFR 1.01 MG/DL (0.70-1.30); FREE T4 1.22 NG/DL (0.76-1.46); GLOMERULAR FILTRATION RATE > 60.0 (>60); GLUCOSE, FASTING 90 MG/DL (70-100); POTASSIUM SERUM 4.9 MEQ/L (3.5-5.1); SODIUM LEVEL 138 MEQ/L (136-145); TOTAL PROTEIN 7.3 GM/DL (6.4-8.2); VITAMIN B12 LEVEL 699 PG/ML (247-911)
== END ==
LOC: M SFHCPLAZ 10:05
PROVIDERS: ATTEND Nurse Practitioner Family
DX: R53.83 Other fatigue (principal); K21.9 Gastro-esophageal reflux disease without esophagitis; E53.8 Deficiency of other specified B group vitamins

== ENCOUNTER → 2020-05-06 | Outpatient (REF) | payer BC ==
[2020-05-06 18:07] LABS: HEMOGLOBIN A1c 5.2 %
[2020-05-06 18:27] LABS: CHOLESTEROL LEVEL 167 MG/DL (<200); CHOLESTEROL RISK RATIO 4.282 (<5); HDL CHOLESTEROL 39 MG/DL (>40); IRON (FE) 117 UG/DL (65-175); LDL CHOLESTEROL 70 MG/DL (<100); NON-HDL-C 128 MG/DL; PERCENT SATURATION 31.7 % (19.7-50.0); TOTAL IRON BINDING CAPACITY 369 UG/DL (250-450); TRIGLYCERIDES LEVEL 291 MG/DL (<150)
[2020-05-06 18:33] LABS: HEPATITIS B SURFACE ANTIBODY NEGATIVE (POSITIVE)
[2020-05-06 18:43] LABS: HEPATITIS B SURFACE ANTIGEN NEGATIVE (NEGATIVE)
== END ==
LOC: M PLALAB 14:58
PROVIDERS: ATTEND Nurse Practitioner Family
DX: R74.8 Abnormal levels of other serum enzymes (principal); Z13.228 Encounter for screening for other metabolic disorders; Z13.220 Encounter for screening for lipoid disorders

== ENCOUNTER → 2020-08-12 | Outpatient (REF) | payer BC ==
[2020-08-12 10:44] LABS: ALBUMIN 4.3 GM/DL (3.2-5.2); BILIRUBIN,DIRECT 0.2 MG/DL (0.0-0.2); BILIRUBIN,TOTAL 0.9 MG/DL (0.2-1.0); CHOLESTEROL RISK RATIO 4.138 (<5); TOTAL PROTEIN 7.4 GM/DL (6.4-8.2)
== END ==
LOC: M PLALAB 08:49
PROVIDERS: ATTEND Nurse Practitioner Family
DX: E78.2 Mixed hyperlipidemia (principal); R74.8 Abnormal levels of other serum enzymes

== ENCOUNTER → 2020-08-17 | Outpatient (CLI) | payer BC ==
--- NOTE | 2020-08-17 08:52 | REP ---
INDICATION: ELEVATED LIVER ENZYMES. COMPARISON: Abdomen/pelvis CT dated 06/23/2016. TECHNIQUE: Multiple sonographic images of the abdominal right upper quadrant. FINDINGS: There is no cholelithiasis, gallbladder wall thickening or pericholecystic fluid. The gallbladder wall measures 1.6 mm thickness. There is no intrahepatic or extrahepatic biliary duct dilatation. The common biliary duct measures 3.2 mm in diameter. The hepatic parenchyma is hyperechoic compatible with hepato steatosis. There is a focal zone of fat sparing near the gallbladder, this is not unusual. The visualized areas of the pancreatic head are unremarkable. The pancreatic body and tail are obscured. The right kidney measures 12.6 x 4.5 x 4.4 cm and is normal size. There is no right renal calculus, hydronephrosis, solid mass or cystic mass. There is no right upper quadrant free fluid. IMPRESSION: Hepato steatosis as described. By in tail of the pancreas are obscured. Otherwise, negative abdominal right upper quadrant ultrasound. <Electronically signed by Ethan Tripathi > 08/17/20 [id number]
== END ==
LOC: M RAD 08:08
PROVIDERS: ATTEND Nurse Practitioner Family
DX: R76.0 Raised antibody titer (principal)

== ENCOUNTER → 2020-11-18 | Outpatient (CLI) | payer BC ==
[~2020-11-18] MED LIST changes: +OMEP40CA4 PO; -OMEP40CA97 PO
[2020-11-18 19:33] LABS: BASO # 0.1 10^3/uL (0.0-0.2); BASO % 0.7 % (0.0-1.0); EOS # 0.2 10^3/uL (0.0-0.5); EOS % 1.4 % (0.0-3.0); HEMATOCRIT 48.6 % (42.0-52.0); HEMOGLOBIN 16.4 g/dl (13.5-17.5); LYMPH # 3.4 10^3/uL (1.5-5.0); LYMPH % 30.6 % (24.0-44.0); MEAN CORPUSCULAR HEMOGLOBIN 30.1 pg (27.0-33.0); MEAN CORPUSCULAR HGB CONC 33.7 g/dl (32.0-36.5); MEAN CORPUSCULAR VOLUME 89.3 fl (80.0-96.0); MONO # 0.7 10^3/uL (0.0-0.8); MONO % 6.6 % (2.0-8.0); NEUTROPHILS # 6.7 10^3/uL (1.5-8.5); NEUTROPHILS % 60.4 % (36.0-66.0); PLATELET COUNT, AUTOMATED 280 10^3/uL (150-450); RED BLOOD COUNT 5.44 10^6/uL (4.30-6.10); WHITE BLOOD COUNT 11.1 10^3/uL (4.0-10.0)
[2020-11-18 19:54] LABS: ALBUMIN 4.5 GM/DL (3.2-5.2); ALT/SGPT 43 U/L (12-78); BLOOD UREA NITROGEN 18 MG/DL (7-18); CALCIUM LEVEL 9.2 MG/DL (8.5-10.1); CARBON DIOXIDE LEVEL 29 MEQ/L (21-32); CHLORIDE LEVEL 106 MEQ/L (98-107); CREATININE FOR GFR 1.07 MG/DL (0.70-1.30); GLOMERULAR FILTRATION RATE > 60.0 (>60); GLUCOSE, FASTING 70 MG/DL (70-100); POTASSIUM SERUM 4.2 MEQ/L (3.5-5.1); SODIUM LEVEL 141 MEQ/L (136-145); TOTAL PROTEIN 7.7 GM/DL (6.4-8.2)
[2020-11-22 13:07] LABS: EBV AB TO NUCLEAR ANTIGEN >600.0 U/mL (0.0-17.9); EBV VIRAL CAPSID AG IgM <36.0 U/mL (0.0-35.9); Lyme Disease IgG Ab 18 kDa Ban Absent (.); Lyme Disease IgG Ab 23 kDa Ban Absent (.); Lyme Disease IgG Ab 28 kDa Ban Absent (.); Lyme Disease IgG Ab 30 kDa Ban Absent (.); Lyme Disease IgG Ab 39 kDa Ban Absent (.); Lyme Disease IgG Ab 41 kDa Ban Present (.); Lyme Disease IgG Ab 45 kDa Ban Absent (.); Lyme Disease IgG Ab 58 kDa Ban Absent (.); Lyme Disease IgG Ab 66 kDa Ban Absent (.); Lyme Disease IgG Ab 93 kDa Ban Absent (.); Lyme Disease IgG West Blot Int Negative (.); Lyme Disease IgG/IgM Antibodie 1.72 ISR (0.00-0.90); Lyme Disease IgM Ab 23 kDa Ban Absent (.); Lyme Disease IgM Ab 39 kDa Ban Absent (.); Lyme Disease IgM Ab 41 kDa Ban Absent (.); Lyme Disease IgM Ab Quantitati <0.80 index (0.00-0.79); Lyme Disease IgM West Blot Int Negative (.)
== END ==
LOC: M LAB 18:12
PROVIDERS: ATTEND Nurse Practitioner Family
DX: S80.862A Insect bite (nonvenomous), left lower leg, initial encounter (principal)

== ENCOUNTER → 2021-03-22 | Outpatient (REF) | payer BC | LOC: M SMT 18:35 | PROVIDERS: ATTEND Urology | DX: Z30.2 Encounter for sterilization (principal) ==

== ENCOUNTER → 2021-05-12 | Outpatient (CLI) | payer BC ==
[2021-05-12 14:03] LABS: BASO # 0.1 10^3/uL (0.0-0.2); BASO % 0.5 % (0.0-1.0); EOS # 0.2 10^3/uL (0.0-0.5); EOS % 1.6 % (0.0-3.0); HEMATOCRIT 49.7 % (42.0-52.0); HEMOGLOBIN 16.5 g/dl (13.5-17.5); LYMPH # 2.7 10^3/uL (1.5-5.0); LYMPH % 27.7 % (24.0-44.0); MEAN CORPUSCULAR HEMOGLOBIN 29.9 pg (27.0-33.0); MEAN CORPUSCULAR HGB CONC 33.2 g/dl (32.0-36.5); MEAN CORPUSCULAR VOLUME 90.2 fl (80.0-96.0); MONO # 0.6 10^3/uL (0.0-0.8); MONO % 6.3 % (2.0-8.0); NEUTROPHILS # 6.1 10^3/uL (1.5-8.5); NEUTROPHILS % 63.7 % (36.0-66.0); PLATELET COUNT, AUTOMATED 281 10^3/uL (150-450); RED BLOOD COUNT 5.51 10^6/uL (4.30-6.10); WHITE BLOOD COUNT 9.6 10^3/uL (4.0-10.0)
[2021-05-12 14:29] LABS: ALBUMIN 4.3 GM/DL (3.2-5.2); ALT/SGPT 43 U/L (12-78); BILIRUBIN,TOTAL 0.6 MG/DL (0.2-1.0); BLOOD UREA NITROGEN 17 MG/DL (7-18); CALCIUM LEVEL 9.5 MG/DL (8.5-10.1); CARBON DIOXIDE LEVEL 28 MEQ/L (21-32); CHLORIDE LEVEL 107 MEQ/L (98-107); CHOLESTEROL LEVEL 159 MG/DL (<200); CHOLESTEROL RISK RATIO 4.076 (<5); CREATININE FOR GFR 0.99 MG/DL (0.70-1.30); GLOMERULAR FILTRATION RATE > 60.0 (>60); GLUCOSE, FASTING 83 MG/DL (70-100); HDL CHOLESTEROL 39 MG/DL (>40); LDL CHOLESTEROL 91 MG/DL (<100); NON-HDL-C 120 MG/DL; POTASSIUM SERUM 4.6 MEQ/L (3.5-5.1); SODIUM LEVEL 140 MEQ/L (136-145); TOTAL PROTEIN 7.5 GM/DL (6.4-8.2); TRIGLYCERIDES LEVEL 145 MG/DL (<150)
[2021-05-14 02:07] LABS: IgG P18 AB Absent (.); IgG P23 AB Absent (.); IgG P28 AB Absent (.); IgG P30 AB Absent (.); IgG P39 AB Absent (.); IgG P41 AB Present (.); IgG P45 AB Absent (.); IgG P66 AB Absent (.); IgG P93 AB Absent (.); IgM P23 AB Present (.); IgM P39 AB Absent (.); IgM P41 AB Absent (.); LYME IgG WB INTERPRETATION Negative (.); LYME IgM WB INTERPRETATION Negative (.)
== END ==
LOC: M PLALAB 10:32
PROVIDERS: ATTEND Nurse Practitioner Family
DX: E78.2 Mixed hyperlipidemia (principal); R76.8 Other specified abnormal immunological findings in serum

== ENCOUNTER → 2021-05-18 | Outpatient (REF) | payer BC ==
[2021-05-18 13:47] LABS: SEMEN APPEARANCE OPAQUE (OPAQUE); SEMEN VISCOSITY LIQUID (LIQUID); SEMEN VOLUME 1.5 ml (2.0-5.0); WBC CONCENTRATION <=1 M/ml (<=1 M/ml)
== END ==
LOC: M SMT 13:35
PROVIDERS: ATTEND Urology
DX: Z30.8 Encounter for other contraceptive management (principal)

== ENCOUNTER → 2021-06-15 | Outpatient (CLI) | payer BC | LOC: M SLEEP HO 06-08 10:50 | PROVIDERS: ATTEND Nurse Practitioner Family | DX: R53.83 Other fatigue (principal) ==

== ENCOUNTER → 2023-12-30 | Outpatient (CLI) | payer BC ==
[2023-12-30 18:53] LABS: BASO # 0.1 10^3/uL (0.0-0.2); BASO % 0.7 % (0.0-1.0); EOS # 0.1 10^3/uL (0.0-0.5); EOS % 1.4 % (0.0-3.0); HEMATOCRIT 47.9 % (42.0-52.0); HEMOGLOBIN 16.6 g/dl (13.5-17.5); LYMPH % 30.2 % (24.0-44.0); MEAN CORPUSCULAR HEMOGLOBIN 31.6 pg (27.0-33.0); MEAN CORPUSCULAR HGB CONC 34.7 g/dl (32.0-36.5); MEAN CORPUSCULAR VOLUME 91.1 fl (80.0-96.0); MONO # 0.8 10^3/uL (0.0-0.8); MONO % 7.9 % (2.0-8.0); NEUTROPHILS % 59.6 % (36.0-66.0); PLATELET COUNT, AUTOMATED 275 10^3/uL (150-450); RED BLOOD COUNT 5.26 10^6/uL (4.30-6.10)
[2023-12-30 18:59] LABS: ERYTHROCYTE SEDIMENTATION RATE 7 mm/hr (0-15)
[2023-12-30 19:16] LABS: C REACTIVE PROTEIN QUANTITATIV < 0.40 MG/DL (<1.0)
[2023-12-30 19:18] LABS: ALBUMIN 4.4 G/DL (3.2-5.2); ALKALINE PHOSPHATASE 85 U/L (46-116); ALT/SGPT 45 U/L (7.0-40); AST/SGOT 21 U/L (<34); BILIRUBIN,TOTAL 0.9 MG/DL (0.3-1.2); BLOOD UREA NITROGEN 13 MG/DL (9-23); CALCIUM LEVEL 9.1 MG/DL (8.5-10.1); CARBON DIOXIDE LEVEL 31 MMOL/L (20-31); CHLORIDE LEVEL 106 MMOL/L (98-107); CHOLESTEROL LEVEL 157 MG/DL (<200); CHOLESTEROL RISK RATIO 4.17 (<5); CREATININE FOR GFR 0.87 MG/DL (0.70-1.30); GLOMERULAR FILTRATION RATE > 60.0 (>60); GLUCOSE, FASTING 56 MG/DL (60-100); HDL CHOLESTEROL 37.6 MG/DL (>40); LDL CHOLESTEROL 54.2 MG/DL (<100); NON-HDL-C 119.4 MG/DL; POTASSIUM SERUM 4.4 MMOL/L (3.5-5.1); SODIUM LEVEL 140 MMOL/L (136-145); TOTAL PROTEIN 7.2 G/DL (5.7-8.2); TRIGLYCERIDES LEVEL 326 MG/DL (<150)
[2023-12-30 19:21] LABS: FREE T4 1.16 NG/DL (0.89-1.76); THYROID STIMULATING HORMONE 1.682 uIU/ML (0.55-4.78)
== END ==
LOC: M PLALAB 16:39
PROVIDERS: ATTEND Nurse Practitioner Family
DX: E78.2 Mixed hyperlipidemia (principal); E55.9 Vitamin D deficiency, unspecified; M25.50 Pain in unspecified joint; R53.83 Other fatigue

== ENCOUNTER → 2024-07-14 | Outpatient (CLI) | payer BC ==
[2024-07-14 14:35] LABS: BASO # 0.1 10^3/uL (0.0-0.2); BASO % 1.1 % (0.0-1.0); EOS # 0.2 10^3/uL (0.0-0.5); EOS % 2.2 % (0.0-3.0); HEMATOCRIT 50.3 % (42.0-52.0); HEMOGLOBIN 17.1 g/dl (13.5-17.5); LYMPH # 2.5 10^3/uL (1.5-5.0); LYMPH % 26.8 % (24.0-44.0); MEAN CORPUSCULAR HEMOGLOBIN 30.8 pg (27.0-33.0); MEAN CORPUSCULAR VOLUME 90.6 fl (80.0-96.0); MONO # 0.6 10^3/uL (0.0-0.8); MONO % 6.5 % (2.0-8.0); NEUTROPHILS # 5.8 10^3/uL (1.5-8.5); NEUTROPHILS % 63.2 % (36.0-66.0); PLATELET COUNT, AUTOMATED 281 10^3/uL (150-450); RED BLOOD COUNT 5.55 10^6/uL (4.30-6.10); WHITE BLOOD COUNT 9.1 10^3/uL (4.0-10.0)
[2024-07-14 15:10] LABS: ALBUMIN 4.1 G/DL (3.2-5.2); ALKALINE PHOSPHATASE 78 U/L (40-129); ALT/SGPT 35 U/L (7.0-40); AST/SGOT 38 U/L (<34); BILIRUBIN,TOTAL 0.9 MG/DL (0.3-1.2); BLOOD UREA NITROGEN 14 MG/DL (9-23); CALCIUM LEVEL 9.1 MG/DL (8.5-10.1); CARBON DIOXIDE LEVEL 28 MMOL/L (20-31); CHLORIDE LEVEL 106 MMOL/L (98-107); CHOLESTEROL LEVEL 173 MG/DL (<200); CHOLESTEROL RISK RATIO 4.27 (<5); CREATININE FOR GFR 0.85 MG/DL (0.70-1.30); GLOMERULAR FILTRATION RATE > 60.0 (>60); GLUCOSE, FASTING 87 MG/DL (60-100); HDL CHOLESTEROL 40.5 MG/DL (>40); LDL CHOLESTEROL 82.9 MG/DL (<100); NON-HDL-C 132.5 MG/DL; POTASSIUM SERUM 5.2 MMOL/L (3.5-5.1); SODIUM LEVEL 142 MMOL/L (136-145); TOTAL PROTEIN 7.1 G/DL (5.7-8.2); TRIGLYCERIDES LEVEL 248 MG/DL (<150)
== END ==
LOC: M PLALAB 09:27
PROVIDERS: ATTEND Nurse Practitioner Family
DX: E34.9 Endocrine disorder, unspecified (principal); E78.2 Mixed hyperlipidemia

== ENCOUNTER → 2024-07-15 | Outpatient (CLI) | payer BC | LOC: M PLAIMG 09:33 | PROVIDERS: ATTEND Physician Assistant Medical | DX: J31.0 Chronic rhinitis (principal) ==

== ENCOUNTER → 2024-07-31 | Outpatient (CLI) | payer BC ==
[2024-07-31 11:34] LABS: HEMATOCRIT 48.8 % (42.0-52.0); HEMOGLOBIN 16.6 g/dl (13.5-17.5)
[2024-07-31 12:07] LABS: CORTISOL AM 9.5 UG/DL (4.3-22.4); THYROID STIMULATING HORMONE 1.318 uIU/ML (0.55-4.78)
[2024-07-31 12:09] LABS: LUTEINIZING HORMONE 3.5 mIU/ML (1.5-9.3); PROLACTIN 4.6 NG/ML (2.1-17.7)
[2024-07-31 12:10] LABS: FOLLICLE STIMULATING HORMONE 2.1 mIU/ML (1.4-18.1)
[2024-07-31 12:12] LABS: FREE T4 1.12 NG/DL (0.89-1.76)
[2024-08-04 11:15] LABS: TESTOSTERONE %FREE+WEAKLY BOUN 28.7 % (9.0-46.0); TESTOSTERONE FREE+WEAKLY BOUND 43.6 ng/dL (40.0-250.0); TESTOSTERONE TOTAL 152 ng/dL (264-916)
== END ==
LOC: M PLALAB 08:45
PROVIDERS: ATTEND Nurse Practitioner Family
DX: E29.1 Testicular hypofunction (principal)

== ENCOUNTER → 2024-10-09 | Outpatient (CLI) | payer BC ==
[~2024-10-09] MED LIST changes: +PROHANCE 279.3MG/ML 5ML VIAL ONE
== END ==
LOC: M PLAIMG 07:25
PROVIDERS: ATTEND Nurse Practitioner Family
DX: E29.1 Testicular hypofunction (principal); E34.8 Other specified endocrine disorders
CPT/HCPCS: 70553; A9576

== ENCOUNTER → 2025-02-08 | Outpatient (CLI) | payer BC ==
[~2025-02-08] MED LIST changes: -PROHANCE 279.3MG/ML 5ML VIAL ONE
== END ==
LOC: M PLALAB 12:43
PROVIDERS: ATTEND Nurse Practitioner Family
DX: E29.1 Testicular hypofunction (principal)

== ENCOUNTER → 2025-05-07 | Outpatient (CLI) | payer BC | LOC: M PLALAB 10:59 | PROVIDERS: ATTEND Nurse Practitioner Family | DX: E29.1 Testicular hypofunction (principal) ==